=== PATIENT | female | born 1940 | race Caucasian/White ===

== ENCOUNTER 2017-12-19 14:43 | Inpatient (IN) | payer MEDICARE, OTHER ==
[2017-12-19 16:06] LABS: URINE BLOOD (Dip) POC 3+ (NEGATIVE); URINE GLUCOSE (Dip) POC Negative (NEGATIVE); URINE KETONES (Dip) POC Trace (NEGATIVE); URINE LEUKOCYTE EST (Dip) POC 3+ (NEGATIVE); URINE NITRITE (Dip) POC Positive (NEGATIVE); URINE TOTAL PROTEIN POC 3+ (NEGATIVE)
[2017-12-19 16:06] LABS: URINE PH (Dip) POC 8.5 (5.0-8.5)
[2017-12-19 17:47] LABS: ADD MAN DIFF? NO
[2017-12-19 17:50] LABS: WHITE BLOOD COUNT 11.5 10^3/ul (4.8-10.8)
[2017-12-19 17:50] LABS: BASOPHIL # 0.1 10^3/ul (0.0-0.1); BASOPHILS % 0.4 % (0.0-2.0); EOSINOPHILS # 0.3 10^3/ul (0.0-0.5); EOSINOPHILS % 2.7 % (0.0-7.0); HEMOGLOBIN 11.4 g/dl (12.0-16.0); LYMPHOCYTES # 1.3 10^3/ul (0.8-2.9); LYMPHOCYTES % 11.1 % (15.0-51.0); MEAN CORPUSCULAR HEMOGLOBIN 26.1 pg (29.0-33.0); MEAN CORPUSCULAR HGB CONC 31.7 g/dl (32.0-37.0); MEAN CORPUSCULAR VOLUME 82.4 fl (82.0-101.0); MEAN PLATELET VOLUME 8.2 fl (7.4-10.4); MONOCYTE # 1.1 10^3/ul (0.3-0.9); MONOCYTES % 9.1 % (0.0-11.0); NEUTROPHIL # 8.8 10^3/ul (1.6-7.5); NEUTROPHILS % 76.1 % (39.0-77.0); PLATELET COUNT 288 10^3/UL (140-415); RED BLOOD COUNT 4.37 10^6/ul (4.20-5.40)
[2017-12-19] MEDS: ONDANSETRON 4 MG INJ IV (18:02)
[2017-12-19] MEDS: morphine 2 MG INJ IV (18:02)
[2017-12-19 18:07] LABS: ANION GAP 12 (8-16); BLOOD UREA NITROGEN 21 mg/dl (7-20); CALCIUM 8.9 mg/dl (8.4-10.2); CARBON DIOXIDE 31 mmol/L (21-31); CHLORIDE 105 mmol/L (97-110); CREATININE 0.93 mg/dl (0.44-1.00); GLUCOSE 106 mg/dl (70-220); POTASSIUM 3.7 mmol/L (3.5-5.1); SODIUM 144 mmol/L (135-144)
[2017-12-19] MEDS ORDERED: ACETAMINOPHEN 325 MG TAB PO (19:00)
[2017-12-19] MEDS ORDERED: ZOLPIDEM 5 MG TAB PO (19:00)
[2017-12-19] MEDS ORDERED: ARTIFICIAL TEARS 15 ML OPH BOTH EYES (19:00)
[2017-12-19 19:25] LABS: ALANINE AMINOTRANSFERASE 24 IU/L (13-69); ALBUMIN 3.3 g/dl (3.3-4.9); ALKALINE PHOSPHATASE 93 IU/L (42-121); ASPARTATE AMINO TRANSFERASE 17 IU/L (15-46); BILIRUBIN,INDIRECT 0.2 mg/dl (0-1.1); BILIRUBIN,TOTAL 0.2 mg/dl (0.2-1.3); TOTAL PROTEIN 6.3 g/dl (6.1-8.1)
[2017-12-19] MEDS: HYDROCODONE/APAP (5/325) TAB PO (20:00)
[2017-12-19] MEDS: DICLOFENAC SODIUM 1% GEL 100 GM TUBE TP (23:00)
[2017-12-19] MEDS: NYSTATIN 15 GM POWDER BTL TOP (23:00)
[2017-12-19] MEDS: LACTOBACILLUS RHAMNOSUS CAP PO (23:00)
[2017-12-19] MEDS: APIXABAN 5 MG TABLET PO (23:09)
[2017-12-19] MEDS: POTASSIUM CHLORIDE (SR) 20 MEQ TAB PO (23:10)
[2017-12-19] MEDS: GABAPENTIN 100 MG CAP PO (23:11)
[2017-12-19] MEDS: ATORVASTATIN 40 MG TAB PO (23:11)
[2017-12-20] MEDS: MEROPENEM 500MG/50 ML (PMX) 50 ML IVPB ×3 (00:16→20:41)
[2017-12-20] MEDS: HYDROCODONE/APAP (5/325) TAB PO (02:42)
[2017-12-20 05:36] LABS: ADD MAN DIFF? NO
[2017-12-20 05:41] LABS: WHITE BLOOD COUNT 8.9 10^3/ul (4.8-10.8)
[2017-12-20 05:41] LABS: BASOPHILS % 0.4 % (0.0-2.0); EOSINOPHILS # 0.5 10^3/ul (0.0-0.5); HEMATOCRIT 32.4 % (37.0-47.0); LYMPHOCYTES # 1.5 10^3/ul (0.8-2.9); LYMPHOCYTES % 16.2 % (15.0-51.0); MEAN CORPUSCULAR HGB CONC 30.9 g/dl (32.0-37.0); MEAN CORPUSCULAR VOLUME 84.2 fl (82.0-101.0); MEAN PLATELET VOLUME 8.8 fl (7.4-10.4); MONOCYTE # 0.9 10^3/ul (0.3-0.9); NEUTROPHIL # 6.1 10^3/ul (1.6-7.5); PLATELET COUNT 278 10^3/UL (140-415); RED BLOOD COUNT 3.85 10^6/ul (4.20-5.40); RED CELL DISTRIBUTION WIDTH 15.2 % (11.5-14.5)
[2017-12-20] MEDS: LEVOTHYROXINE 50 MCG TAB PO (06:32)
[2017-12-20 07:01] LABS: ANION GAP 12 (8-16); BLOOD UREA NITROGEN 22 mg/dl (7-20); CALCIUM 8.8 mg/dl (8.4-10.2); CARBON DIOXIDE 30 mmol/L (21-31); CHLORIDE 107 mmol/L (97-110); CREATININE 1.09 mg/dl (0.44-1.00); GLUCOSE 97 mg/dl (70-220); PHOSPHORUS 4.8 mg/dl (2.5-4.9); POTASSIUM 3.8 mmol/L (3.5-5.1); SODIUM 145 mmol/L (135-144)
[2017-12-20] MEDS: [UNRECOGNIZED DRUG - REMARK] XX (08:00)
[2017-12-20] MEDS: DICLOFENAC SODIUM 1% GEL 100 GM TUBE TP ×3 (09:57→20:43)
[2017-12-20] MEDS: NYSTATIN 15 GM POWDER BTL TOP ×2 (09:57→20:43)
[2017-12-20] MEDS: MULTIVITAMINS/MINERALS TAB PO (09:58)
[2017-12-20] MEDS: ASCORBIC ACID 500 MG TAB PO (09:58)
[2017-12-20] MEDS: LACTOBACILLUS RHAMNOSUS CAP PO ×2 (09:58→20:40)
[2017-12-20] MEDS: GABAPENTIN 100 MG CAP PO ×3 (09:58→20:40)
[2017-12-20] MEDS: POTASSIUM CHLORIDE (SR) 20 MEQ TAB PO ×2 (09:58→20:40)
[2017-12-20] MEDS: FAMOTIDINE 20 MG TAB PO (09:59)
[2017-12-20] MEDS: PHENAZOPYRIDINE 200 MG TAB PO ×3 (09:59→20:40)
[2017-12-20] MEDS: FUROSEMIDE 20 MG TAB PO (10:00)
[2017-12-20] MEDS: AMLODIPINE 10 MG TAB PO (10:00)
[2017-12-20] MEDS: ANASTROZOLE 1 MG TAB PO (10:11)
[2017-12-20] MEDS: BISACODYL (EC) 5 MG TAB PO ×2 (15:39→20:14)
[2017-12-20] MEDS: PEG/ELECTROLYTES 4L BTL PO ×2 (15:41→20:14)
[2017-12-20] MEDS: ATORVASTATIN 40 MG TAB PO (20:40)
[2017-12-21] MEDS: LEVOTHYROXINE 50 MCG TAB PO (04:46)
[2017-12-21 05:57] LABS: ADD MAN DIFF? NO
[2017-12-21 05:59] LABS: BASOPHILS % 0.5 % (0.0-2.0); EOSINOPHILS # 0.3 10^3/ul (0.0-0.5); EOSINOPHILS % 4.5 % (0.0-7.0); HEMATOCRIT 33.9 % (37.0-47.0); HEMOGLOBIN 10.5 g/dl (12.0-16.0); LYMPHOCYTES % 13.6 % (15.0-51.0); MEAN CORPUSCULAR HEMOGLOBIN 25.8 pg (29.0-33.0); MEAN CORPUSCULAR VOLUME 83.3 fl (82.0-101.0); MEAN PLATELET VOLUME 8.6 fl (7.4-10.4); MONOCYTE # 0.7 10^3/ul (0.3-0.9); MONOCYTES % 9.6 % (0.0-11.0); NEUTROPHIL # 5.4 10^3/ul (1.6-7.5); NEUTROPHILS % 71.4 % (39.0-77.0); PLATELET COUNT 264 10^3/UL (140-415); RED BLOOD COUNT 4.07 10^6/ul (4.20-5.40)
[2017-12-21 05:59] LABS: WHITE BLOOD COUNT 7.6 10^3/ul (4.8-10.8)
[2017-12-21 07:41] LABS: ANION GAP 12 (8-16); BLOOD UREA NITROGEN 16 mg/dl (7-20); CALCIUM 8.3 mg/dl (8.4-10.2); CARBON DIOXIDE 30 mmol/L (21-31); CHLORIDE 107 mmol/L (97-110); GLUCOSE 80 mg/dl (70-220); MAGNESIUM 1.9 mg/dl (1.7-2.5); PHOSPHORUS 3.3 mg/dl (2.5-4.9); POTASSIUM 3.7 mmol/L (3.5-5.1); SODIUM 145 mmol/L (135-144)
[2017-12-21] MEDS: SALMETEROL/FLUTICASONE 250/50 INHA INH (08:14)
[2017-12-21] MEDS: POTASSIUM CHLORIDE (SR) 20 MEQ TAB PO ×2 (09:00→21:09)
[2017-12-21] MEDS: FAMOTIDINE 20 MG TAB PO (09:00)
[2017-12-21] MEDS: PHENAZOPYRIDINE 200 MG TAB PO ×3 (09:00→21:09)
[2017-12-21] MEDS: GABAPENTIN 100 MG CAP PO ×3 (09:00→21:09)
[2017-12-21] MEDS: ASCORBIC ACID 500 MG TAB PO (09:00)
[2017-12-21] MEDS: LACTOBACILLUS RHAMNOSUS CAP PO ×2 (09:00→21:09)
[2017-12-21] MEDS: MULTIVITAMINS/MINERALS TAB PO (09:00)
[2017-12-21] MEDS: AMLODIPINE 10 MG TAB PO (09:00)
[2017-12-21] MEDS ORDERED: ALBUTEROL/IPRATROPIUM (NEB) 3 ML AMP HHN (09:00)
[2017-12-21] MEDS: FUROSEMIDE 20 MG TAB PO (09:00)
[2017-12-21] MEDS: NYSTATIN 15 GM POWDER BTL TOP ×2 (09:00→21:10)
[2017-12-21] MEDS: ANASTROZOLE 1 MG TAB PO (09:00)
[2017-12-21] MEDS: MEROPENEM 500MG/50 ML (PMX) 50 ML IVPB ×2 (09:22→21:08)
[2017-12-21] MEDS: FENTAnyl 50 MCG/ML VIAL (12:28)
[2017-12-21] MEDS: PROPOFOL 20 ML ×3 (12:28→13:50)
[2017-12-21] MEDS: MIDAZOLAM 1 MG/ML 2 ML INJ (12:28)
[2017-12-21] MEDS: DILTIAZEM 30 MG TAB PO ×2 (13:00→21:17)
[2017-12-21] MEDS: DICLOFENAC SODIUM 1% GEL 100 GM TUBE TP ×3 (13:00→21:10)
[2017-12-21] MEDS: HYDROCODONE/APAP (5/325) TAB PO (15:10)
[2017-12-21] MEDS: FOSFOMYCIN 3 GM PACKET PO (16:31)
[2017-12-21] MEDS: ATORVASTATIN 40 MG TAB PO (21:09)
[2017-12-22] MEDS: LEVOTHYROXINE 50 MCG TAB PO (05:54)
[2017-12-22 06:09] LABS: ADD MAN DIFF? NO
[2017-12-22 06:13] LABS: BASOPHILS % 0.6 % (0.0-2.0); EOSINOPHILS # 0.3 10^3/ul (0.0-0.5); HEMOGLOBIN 10.6 g/dl (12.0-16.0); LYMPHOCYTES # 1.6 10^3/ul (0.8-2.9); LYMPHOCYTES % 21.9 % (15.0-51.0); MEAN CORPUSCULAR HEMOGLOBIN 25.7 pg (29.0-33.0); MEAN CORPUSCULAR HGB CONC 31.2 g/dl (32.0-37.0); MEAN CORPUSCULAR VOLUME 82.5 fl (82.0-101.0); MEAN PLATELET VOLUME 8.6 fl (7.4-10.4); MONOCYTE # 0.6 10^3/ul (0.3-0.9); MONOCYTES % 7.8 % (0.0-11.0); NEUTROPHIL # 4.7 10^3/ul (1.6-7.5); NEUTROPHILS % 65.3 % (39.0-77.0); PLATELET COUNT 294 10^3/UL (140-415); RED BLOOD COUNT 4.12 10^6/ul (4.20-5.40)
[2017-12-22 06:13] LABS: WHITE BLOOD COUNT 7.2 10^3/ul (4.8-10.8)
[2017-12-22 06:51] LABS: ANION GAP 12 (8-16); BLOOD UREA NITROGEN 13 mg/dl (7-20); CALCIUM 8.8 mg/dl (8.4-10.2); CARBON DIOXIDE 30 mmol/L (21-31); CHLORIDE 107 mmol/L (97-110); CREATININE 0.85 mg/dl (0.44-1.00); GLUCOSE 79 mg/dl (70-220); MAGNESIUM 1.8 mg/dl (1.7-2.5); PHOSPHORUS 3.4 mg/dl (2.5-4.9); POTASSIUM 4.3 mmol/L (3.5-5.1); SODIUM 145 mmol/L (135-144)
[2017-12-22] MEDS: SALMETEROL/FLUTICASONE 250/50 INHA INH ×2 (07:38→08:43)
[2017-12-22] MEDS: LORAZEPAM 0.5 MG TAB PO (07:54)
[2017-12-22] MEDS: POTASSIUM CHLORIDE (SR) 20 MEQ TAB PO ×2 (08:44→20:31)
[2017-12-22] MEDS: NYSTATIN 15 GM POWDER BTL TOP ×2 (08:44→20:33)
[2017-12-22] MEDS: PHENAZOPYRIDINE 200 MG TAB PO ×3 (08:44→20:31)
[2017-12-22] MEDS: MEROPENEM 500MG/50 ML (PMX) 50 ML IVPB (08:44)
[2017-12-22] MEDS: ASCORBIC ACID 500 MG TAB PO (08:45)
[2017-12-22] MEDS: MULTIVITAMINS/MINERALS TAB PO (08:45)
[2017-12-22] MEDS: DICLOFENAC SODIUM 1% GEL 100 GM TUBE TP ×3 (08:45→20:32)
[2017-12-22] MEDS: LACTOBACILLUS RHAMNOSUS CAP PO ×2 (08:45→20:31)
[2017-12-22] MEDS: FAMOTIDINE 20 MG TAB PO (08:45)
[2017-12-22] MEDS: FUROSEMIDE 20 MG TAB PO (08:47)
[2017-12-22] MEDS: DILTIAZEM 30 MG TAB PO ×3 (08:48→20:31)
[2017-12-22] MEDS: AMLODIPINE 10 MG TAB PO (08:48)
[2017-12-22] MEDS: GABAPENTIN 100 MG CAP PO ×3 (09:06→20:31)
[2017-12-22] MEDS: ANASTROZOLE 1 MG TAB PO (10:01)
[2017-12-22] MEDS ORDERED: AMIKACIN IV PER PHARMACY XX (15:30)
[2017-12-22] MEDS: AMIKACIN 600 MG in SOD CHLORIDE 0.9% 100 ML IVPB (18:40)
[2017-12-22] MEDS: ALBUTEROL/IPRATROPIUM (NEB) 3 ML AMP HHN (19:12)
[2017-12-22] MEDS: ATORVASTATIN 40 MG TAB PO (20:31)
[2017-12-22] MEDS: ZYVOX 600 MG TAB PO (22:02)
[2017-12-22] MEDS: APIXABAN 5 MG TABLET PO (22:07)
[2017-12-23] MEDS: ALBUTEROL/IPRATROPIUM (NEB) 3 ML AMP HHN ×4 (01:06→20:23)
[2017-12-23] MEDS: LEVOTHYROXINE 50 MCG TAB PO (06:02)
[2017-12-23] MEDS: SALMETEROL/FLUTICASONE 250/50 INHA INH (08:47)
[2017-12-23] MEDS: NYSTATIN 15 GM POWDER BTL TOP ×2 (08:47→21:39)
[2017-12-23] MEDS: DICLOFENAC SODIUM 1% GEL 100 GM TUBE TP ×3 (08:47→21:39)
[2017-12-23] MEDS: MULTIVITAMINS/MINERALS TAB PO (08:48)
[2017-12-23] MEDS: POTASSIUM CHLORIDE (SR) 20 MEQ TAB PO ×2 (08:48→21:34)
[2017-12-23] MEDS: FAMOTIDINE 20 MG TAB PO (08:48)
[2017-12-23] MEDS: ASCORBIC ACID 500 MG TAB PO (08:48)
[2017-12-23] MEDS: ZYVOX 600 MG TAB PO ×2 (08:48→21:34)
[2017-12-23] MEDS: GABAPENTIN 100 MG CAP PO ×3 (08:48→21:33)
[2017-12-23] MEDS: LACTOBACILLUS RHAMNOSUS CAP PO ×2 (08:48→21:38)
[2017-12-23] MEDS: PHENAZOPYRIDINE 200 MG TAB PO ×3 (08:48→21:32)
[2017-12-23] MEDS: ANASTROZOLE 1 MG TAB PO (08:50)
[2017-12-23] MEDS: AMLODIPINE 10 MG TAB PO (08:51)
[2017-12-23] MEDS: APIXABAN 5 MG TABLET PO ×2 (08:51→21:32)
[2017-12-23] MEDS: FUROSEMIDE 20 MG TAB PO (08:58)
[2017-12-23] MEDS: HYDROCODONE/APAP (5/325) TAB PO (08:58)
[2017-12-23] MEDS: DILTIAZEM 30 MG TAB PO ×3 (08:59→21:32)
[2017-12-23] MEDS: AMIKACIN 600 MG in SOD CHLORIDE 0.9% 100 ML IVPB (17:03)
[2017-12-23] MEDS: ATORVASTATIN 40 MG TAB PO (21:33)
[2017-12-24] MEDS: ALBUTEROL/IPRATROPIUM (NEB) 3 ML AMP HHN ×4 (01:25→19:56)
[2017-12-24] MEDS: LEVOTHYROXINE 50 MCG TAB PO (05:06)
[2017-12-24 06:11] LABS: ADD MAN DIFF? NO
[2017-12-24 06:19] LABS: WHITE BLOOD COUNT 7.7 10^3/ul (4.8-10.8)
[2017-12-24 06:19] LABS: BASOPHILS % 0.4 % (0.0-2.0); EOSINOPHILS # 0.4 10^3/ul (0.0-0.5); EOSINOPHILS % 5.2 % (0.0-7.0); HEMOGLOBIN 10.8 g/dl (12.0-16.0); LYMPHOCYTES # 1.9 10^3/ul (0.8-2.9); LYMPHOCYTES % 24.3 % (15.0-51.0); MEAN CORPUSCULAR HEMOGLOBIN 25.7 pg (29.0-33.0); MEAN CORPUSCULAR HGB CONC 30.9 g/dl (32.0-37.0); MEAN CORPUSCULAR VOLUME 83.1 fl (82.0-101.0); MEAN PLATELET VOLUME 8.4 fl (7.4-10.4); MONOCYTE # 0.7 10^3/ul (0.3-0.9); MONOCYTES % 8.5 % (0.0-11.0); NEUTROPHIL # 4.7 10^3/ul (1.6-7.5); NEUTROPHILS % 61.1 % (39.0-77.0); PLATELET COUNT 322 10^3/UL (140-415); RED BLOOD COUNT 4.21 10^6/ul (4.20-5.40)
[2017-12-24] MEDS: ARTIFICIAL TEARS 15 ML OPH BOTH EYES (06:49)
[2017-12-24 06:52] LABS: ANION GAP 14 (8-16); BLOOD UREA NITROGEN 13 mg/dl (7-20); CALCIUM 8.9 mg/dl (8.4-10.2); CARBON DIOXIDE 28 mmol/L (21-31); CHLORIDE 106 mmol/L (97-110); GLUCOSE 94 mg/dl (70-220); MAGNESIUM 1.9 mg/dl (1.7-2.5); PHOSPHORUS 4.4 mg/dl (2.5-4.9); POTASSIUM 4.6 mmol/L (3.5-5.1); SODIUM 143 mmol/L (135-144)
[2017-12-24] MEDS: PHENAZOPYRIDINE 200 MG TAB PO ×3 (09:22→20:31)
[2017-12-24] MEDS: NYSTATIN 15 GM POWDER BTL TOP ×2 (09:22→20:38)
[2017-12-24] MEDS: SALMETEROL/FLUTICASONE 250/50 INHA INH (09:22)
[2017-12-24] MEDS: DICLOFENAC SODIUM 1% GEL 100 GM TUBE TP ×3 (09:22→20:39)
[2017-12-24] MEDS: ASCORBIC ACID 500 MG TAB PO (09:23)
[2017-12-24] MEDS: MULTIVITAMINS/MINERALS TAB PO (09:23)
[2017-12-24] MEDS: GABAPENTIN 100 MG CAP PO ×3 (09:23→20:32)
[2017-12-24] MEDS: LACTOBACILLUS RHAMNOSUS CAP PO ×2 (09:23→20:31)
[2017-12-24] MEDS: ZYVOX 600 MG TAB PO ×2 (09:23→20:31)
[2017-12-24] MEDS: FAMOTIDINE 20 MG TAB PO (09:23)
[2017-12-24] MEDS: POTASSIUM CHLORIDE (SR) 20 MEQ TAB PO ×2 (09:23→20:32)
[2017-12-24] MEDS: APIXABAN 5 MG TABLET PO ×2 (09:24→20:33)
[2017-12-24] MEDS: FUROSEMIDE 20 MG TAB PO (09:25)
[2017-12-24] MEDS: DILTIAZEM 30 MG TAB PO ×3 (09:26→20:31)
[2017-12-24] MEDS: AMLODIPINE 5 MG TAB PO (09:26)
[2017-12-24] MEDS: ANASTROZOLE 1 MG TAB PO (09:39)
[2017-12-24] MEDS: LORAZEPAM 0.5 MG TAB PO (13:05)
[2017-12-24] MEDS: DOCUSATE SODIUM 100 MG CAP PO (13:05)
[2017-12-24] MEDS: AMIKACIN 600 MG in SOD CHLORIDE 0.9% 100 ML IVPB (17:47)
[2017-12-24] MEDS: LUBIPROSTONE 24 MCG CAP PO (20:30)
[2017-12-24] MEDS: ATORVASTATIN 40 MG TAB PO (20:32)
[2017-12-25] MEDS: ALBUTEROL/IPRATROPIUM (NEB) 3 ML AMP HHN ×4 (02:00→19:57)
[2017-12-25] MEDS: LEVOTHYROXINE 50 MCG TAB PO (05:16)
[2017-12-25] MEDS: ARTIFICIAL TEARS 15 ML OPH BOTH EYES (05:16)
[2017-12-25] MEDS: FAMOTIDINE 20 MG TAB PO (08:58)
[2017-12-25] MEDS: ZYVOX 600 MG TAB PO (08:58)
[2017-12-25] MEDS: POTASSIUM CHLORIDE (SR) 20 MEQ TAB PO ×2 (08:58→21:58)
[2017-12-25] MEDS: PHENAZOPYRIDINE 200 MG TAB PO ×3 (08:58→21:52)
[2017-12-25] MEDS: LACTOBACILLUS RHAMNOSUS CAP PO ×2 (08:58→21:52)
[2017-12-25] MEDS: GABAPENTIN 100 MG CAP PO ×3 (08:58→21:53)
[2017-12-25] MEDS: MULTIVITAMINS/MINERALS TAB PO (08:58)
[2017-12-25] MEDS: ASCORBIC ACID 500 MG TAB PO (08:58)
[2017-12-25] MEDS: LUBIPROSTONE 24 MCG CAP PO ×2 (08:58→21:53)
[2017-12-25] MEDS: AMLODIPINE 5 MG TAB PO (08:59)
[2017-12-25] MEDS: FUROSEMIDE 20 MG TAB PO (08:59)
[2017-12-25] MEDS: SALMETEROL/FLUTICASONE 250/50 INHA INH (09:02)
[2017-12-25] MEDS: ANASTROZOLE 1 MG TAB PO (09:02)
[2017-12-25] MEDS: DICLOFENAC SODIUM 1% GEL 100 GM TUBE TP ×3 (09:03→21:53)
[2017-12-25] MEDS: NYSTATIN 15 GM POWDER BTL TOP ×2 (09:04→21:53)
[2017-12-25] MEDS: APIXABAN 5 MG TABLET PO ×2 (09:07→21:52)
[2017-12-25] MEDS: DILTIAZEM (CD) 180 MG CAP PO (12:47)
[2017-12-25] MEDS: HYDROCODONE/APAP (5/325) TAB PO (13:31)
[2017-12-25] MEDS: ATORVASTATIN 40 MG TAB PO (21:52)
[2017-12-26] MEDS: ALBUTEROL/IPRATROPIUM (NEB) 3 ML AMP HHN ×4 (01:23→19:24)
[2017-12-26 06:01] LABS: ADD MAN DIFF? NO
[2017-12-26] MEDS: LEVOTHYROXINE 50 MCG TAB PO (06:04)
[2017-12-26] MEDS: SALMETEROL/FLUTICASONE 250/50 INHA INH ×2 (06:05→18:02)
[2017-12-26 06:07] LABS: WHITE BLOOD COUNT 10.5 10^3/ul (4.8-10.8)
[2017-12-26 06:07] LABS: BASOPHILS % 0.4 % (0.0-2.0); EOSINOPHILS # 0.5 10^3/ul (0.0-0.5); EOSINOPHILS % 4.6 % (0.0-7.0); HEMATOCRIT 33.9 % (37.0-47.0); HEMOGLOBIN 10.6 g/dl (12.0-16.0); LYMPHOCYTES # 1.6 10^3/ul (0.8-2.9); LYMPHOCYTES % 14.8 % (15.0-51.0); MEAN CORPUSCULAR HEMOGLOBIN 25.9 pg (29.0-33.0); MEAN CORPUSCULAR HGB CONC 31.3 g/dl (32.0-37.0); MEAN CORPUSCULAR VOLUME 82.7 fl (82.0-101.0); MEAN PLATELET VOLUME 8.9 fl (7.4-10.4); MONOCYTE # 0.8 10^3/ul (0.3-0.9); MONOCYTES % 7.3 % (0.0-11.0); NEUTROPHIL # 7.6 10^3/ul (1.6-7.5); NEUTROPHILS % 72.3 % (39.0-77.0); PLATELET COUNT 317 10^3/UL (140-415); RED CELL DISTRIBUTION WIDTH 15.5 % (11.5-14.5)
[2017-12-26 06:43] LABS: ANION GAP 14 (8-16); BLOOD UREA NITROGEN 16 mg/dl (7-20); CALCIUM 8.5 mg/dl (8.4-10.2); CARBON DIOXIDE 25 mmol/L (21-31); CHLORIDE 107 mmol/L (97-110); CREATININE 1.13 mg/dl (0.44-1.00); GLUCOSE 93 mg/dl (70-220); PHOSPHORUS 4.1 mg/dl (2.5-4.9); POTASSIUM 4.3 mmol/L (3.5-5.1); SODIUM 142 mmol/L (135-144)
[2017-12-26] MEDS: HYDROCODONE/APAP (5/325) TAB PO ×2 (08:16→18:03)
[2017-12-26] MEDS: PHENAZOPYRIDINE 200 MG TAB PO ×3 (09:07→22:35)
[2017-12-26] MEDS: GABAPENTIN 100 MG CAP PO ×3 (09:07→22:35)
[2017-12-26] MEDS: APIXABAN 5 MG TABLET PO (09:08)
[2017-12-26] MEDS: FUROSEMIDE 20 MG TAB PO (09:08)
[2017-12-26] MEDS: POTASSIUM CHLORIDE (SR) 20 MEQ TAB PO ×2 (09:09→22:35)
[2017-12-26] MEDS: MULTIVITAMINS/MINERALS TAB PO (09:09)
[2017-12-26] MEDS: AMLODIPINE 5 MG TAB PO (09:09)
[2017-12-26] MEDS: LACTOBACILLUS RHAMNOSUS CAP PO ×2 (09:09→22:36)
[2017-12-26] MEDS: FAMOTIDINE 20 MG TAB PO (09:10)
[2017-12-26] MEDS: LUBIPROSTONE 24 MCG CAP PO ×2 (09:10→22:36)
[2017-12-26] MEDS: DILTIAZEM (CD) 180 MG CAP PO (09:10)
[2017-12-26] MEDS: DICLOFENAC SODIUM 1% GEL 100 GM TUBE TP ×3 (09:13→22:33)
[2017-12-26] MEDS: NYSTATIN 15 GM POWDER BTL TOP ×2 (09:13→22:33)
[2017-12-26] MEDS: ANASTROZOLE 1 MG TAB PO (09:13)
[2017-12-26] MEDS: ASCORBIC ACID 500 MG TAB PO (09:28)
[2017-12-26] MEDS: AL HYDROX/MG HYDROX/SIMETH 30 ML CUP PO ×3 (14:17→22:35)
[2017-12-26] MEDS: ATORVASTATIN 40 MG TAB PO (22:35)
[2017-12-27] MEDS: ALBUTEROL/IPRATROPIUM (NEB) 3 ML AMP HHN ×4 (01:18→19:53)
[2017-12-27 05:17] LABS: ADD MAN DIFF? NO
[2017-12-27 05:23] LABS: BASOPHILS % 0.3 % (0.0-2.0); EOSINOPHILS # 0.4 10^3/ul (0.0-0.5); EOSINOPHILS % 4.2 % (0.0-7.0); HEMATOCRIT 35.5 % (37.0-47.0); HEMOGLOBIN 10.8 g/dl (12.0-16.0); LYMPHOCYTES # 1.5 10^3/ul (0.8-2.9); MEAN CORPUSCULAR HEMOGLOBIN 25.6 pg (29.0-33.0); MEAN CORPUSCULAR HGB CONC 30.4 g/dl (32.0-37.0); MEAN CORPUSCULAR VOLUME 84.1 fl (82.0-101.0); MEAN PLATELET VOLUME 8.3 fl (7.4-10.4); MONOCYTE # 0.7 10^3/ul (0.3-0.9); MONOCYTES % 7.3 % (0.0-11.0); NEUTROPHIL # 7.3 10^3/ul (1.6-7.5); NEUTROPHILS % 72.8 % (39.0-77.0); PLATELET COUNT 296 10^3/UL (140-415); RED BLOOD COUNT 4.22 10^6/ul (4.20-5.40); RED CELL DISTRIBUTION WIDTH 15.5 % (11.5-14.5)
[2017-12-27 05:54] LABS: ANION GAP 15 (8-16); BLOOD UREA NITROGEN 13 mg/dl (7-20); CALCIUM 8.8 mg/dl (8.4-10.2); CARBON DIOXIDE 25 mmol/L (21-31); CHLORIDE 108 mmol/L (97-110); CREATININE 0.95 mg/dl (0.44-1.00); GLUCOSE 94 mg/dl (70-220); MAGNESIUM 2.1 mg/dl (1.7-2.5); PHOSPHORUS 3.8 mg/dl (2.5-4.9); POTASSIUM 5.2 mmol/L (3.5-5.1); SODIUM 143 mmol/L (135-144)
[2017-12-27] MEDS: LEVOTHYROXINE 50 MCG TAB PO (06:08)
[2017-12-27] MEDS: SALMETEROL/FLUTICASONE 250/50 INHA INH ×2 (06:08→16:00)
[2017-12-27] MEDS: PANTOPRAZOLE (EC) 40 MG TAB PO (06:09)
[2017-12-27] MEDS: PHENAZOPYRIDINE 200 MG TAB PO ×3 (08:43→20:50)
[2017-12-27] MEDS: GABAPENTIN 100 MG CAP PO ×3 (08:43→20:50)
[2017-12-27] MEDS: LUBIPROSTONE 24 MCG CAP PO ×2 (08:43→20:50)
[2017-12-27] MEDS: MULTIVITAMINS/MINERALS TAB PO (08:44)
[2017-12-27] MEDS: LACTOBACILLUS RHAMNOSUS CAP PO ×2 (08:44→20:50)
[2017-12-27] MEDS: ASCORBIC ACID 500 MG TAB PO (08:44)
[2017-12-27] MEDS: AMLODIPINE 5 MG TAB PO (08:44)
[2017-12-27] MEDS: DILTIAZEM (CD) 180 MG CAP PO (08:44)
[2017-12-27] MEDS: FUROSEMIDE 20 MG TAB PO (08:45)
[2017-12-27] MEDS: NYSTATIN 15 GM POWDER BTL TOP ×2 (08:45→20:51)
[2017-12-27] MEDS: DICLOFENAC SODIUM 1% GEL 100 GM TUBE TP ×3 (08:45→20:51)
[2017-12-27] MEDS: AL HYDROX/MG HYDROX/SIMETH 30 ML CUP PO ×2 (08:46→15:56)
[2017-12-27] MEDS: ANASTROZOLE 1 MG TAB PO (08:52)
[2017-12-27 12:07] LABS: INR 1.19; PROTIME 15.3 Sec (11.9-14.9); PT RATIO 1.2
[2017-12-27] MEDS: ATORVASTATIN 40 MG TAB PO (20:50)
[2017-12-28] MEDS: ALBUTEROL/IPRATROPIUM (NEB) 3 ML AMP HHN ×4 (01:34→20:00)
[2017-12-28] MEDS: LEVOTHYROXINE 50 MCG TAB PO ×3 (05:02→11:00)
[2017-12-28] MEDS: PANTOPRAZOLE (EC) 40 MG TAB PO (05:02)
[2017-12-28] MEDS: SALMETEROL/FLUTICASONE 250/50 INHA INH ×2 (05:11→18:55)
[2017-12-28 06:18] LABS: ADD MAN DIFF? NO
[2017-12-28 06:22] LABS: WHITE BLOOD COUNT 8.6 10^3/ul (4.8-10.8)
[2017-12-28 06:22] LABS: BASOPHILS % 0.5 % (0.0-2.0); EOSINOPHILS # 0.4 10^3/ul (0.0-0.5); EOSINOPHILS % 4.2 % (0.0-7.0); HEMATOCRIT 33.4 % (37.0-47.0); HEMOGLOBIN 10.3 g/dl (12.0-16.0); LYMPHOCYTES # 1.6 10^3/ul (0.8-2.9); LYMPHOCYTES % 18.3 % (15.0-51.0); MEAN CORPUSCULAR HEMOGLOBIN 25.6 pg (29.0-33.0); MEAN CORPUSCULAR HGB CONC 30.8 g/dl (32.0-37.0); MEAN CORPUSCULAR VOLUME 82.9 fl (82.0-101.0); MEAN PLATELET VOLUME 8.5 fl (7.4-10.4); MONOCYTE # 0.8 10^3/ul (0.3-0.9); MONOCYTES % 8.7 % (0.0-11.0); NEUTROPHIL # 5.9 10^3/ul (1.6-7.5); PLATELET COUNT 284 10^3/UL (140-415); RED BLOOD COUNT 4.03 10^6/ul (4.20-5.40); RED CELL DISTRIBUTION WIDTH 15.4 % (11.5-14.5)
[2017-12-28] MEDS ORDERED: SUCCINYLCHOLINE CHLORIDE 100 MG/5 ML SYG IV (07:00)
[2017-12-28 07:05] LABS: ANION GAP 13 (8-16); BLOOD UREA NITROGEN 13 mg/dl (7-20); CALCIUM 8.7 mg/dl (8.4-10.2); CARBON DIOXIDE 28 mmol/L (21-31); CHLORIDE 106 mmol/L (97-110); CREATININE 0.96 mg/dl (0.44-1.00); GLUCOSE 91 mg/dl (70-220); MAGNESIUM 2.1 mg/dl (1.7-2.5); PHOSPHORUS 3.9 mg/dl (2.5-4.9); SODIUM 143 mmol/L (135-144)
[2017-12-28] MEDS: DILTIAZEM (CD) 180 MG CAP PO ×3 (09:00→10:59)
[2017-12-28] MEDS: MULTIVITAMINS/MINERALS TAB PO (09:00)
[2017-12-28] MEDS: FUROSEMIDE 20 MG TAB PO (09:00)
[2017-12-28] MEDS: AMLODIPINE 5 MG TAB PO (09:00)
[2017-12-28] MEDS: ANASTROZOLE 1 MG TAB PO (09:00)
[2017-12-28] MEDS: PHENAZOPYRIDINE 200 MG TAB PO ×3 (09:00→20:31)
[2017-12-28] MEDS: ASCORBIC ACID 500 MG TAB PO (09:00)
[2017-12-28] MEDS: GABAPENTIN 100 MG CAP PO ×3 (09:00→20:31)
[2017-12-28] MEDS: LUBIPROSTONE 24 MCG CAP PO ×2 (09:00→20:31)
[2017-12-28] MEDS: LACTOBACILLUS RHAMNOSUS CAP PO ×2 (09:00→20:31)
[2017-12-28] MEDS: NYSTATIN 15 GM POWDER BTL TOP ×2 (10:17→20:32)
[2017-12-28] MEDS: DICLOFENAC SODIUM 1% GEL 100 GM TUBE TP ×3 (10:17→20:32)
[2017-12-28] MEDS ORDERED: ISOSULFAN BLUE 1% 5 ML INJ SC (11:59)
[2017-12-28] MEDS ORDERED: PROPOFOL 20 ML ×2 (14:01→15:46)
[2017-12-28] MEDS ORDERED: MIDAZOLAM 1 MG/ML 2 ML INJ (14:01)
[2017-12-28] MEDS ORDERED: FENTAnyl 50 MCG/ML VIAL (14:01)
[2017-12-28] MEDS ORDERED: PHENYLephrine (100 MCG/ML) 5ML SYG (14:17)
[2017-12-28] MEDS ORDERED: BUPIVACAINE 0.5% (SDV) 30 ML INJ (14:34)
[2017-12-28] MEDS ORDERED: LIDOCAINE 1%/EPI 30 ML INJ (14:34)
[2017-12-28] MEDS ORDERED: DEXAMETHASONE 4 MG/ML 1 ML INJ (14:36)
[2017-12-28] MEDS: LIDOCAINE 1%/EPI 30 ML INJ INJ (14:36)
[2017-12-28] MEDS ORDERED: ONDANSETRON 4 MG INJ ×2 (14:36→15:47)
[2017-12-28] MEDS: BUPIVACAINE 0.5% 30 ML VIAL INJ (14:36)
[2017-12-28] MEDS: ISOSULFAN BLUE 1% 5 ML INJ SC (14:40)
[2017-12-28] MEDS ORDERED: CLINDAMYCIN 900 MG/D5W (PMX) 50 ML IVPB (14:40)
[2017-12-28] MEDS ORDERED: ACETAMINOPHEN 1000MG/100ML IV 100 ML (14:41)
[2017-12-28] MEDS ORDERED: EPHEDrine SULFATE 50 MG/5 ML SYG (14:41)
[2017-12-28] MEDS ORDERED: FENTAnyl 50 MCG/ML VIAL IV ×2 (15:00)
[2017-12-28] MEDS ORDERED: ONDANSETRON 4 MG INJ IV ×2 (15:00→17:00)
[2017-12-28] MEDS ORDERED: HYDROmorphONE (0.2 MG/ML) 10ML SYG IV ×2 (15:00)
[2017-12-28] MEDS ORDERED: LABETALOL HCL 20MG INJ IV (15:00)
[2017-12-28] MEDS ORDERED: hydrALAzine 20 MG INJ IV (15:00)
[2017-12-28] MEDS ORDERED: MEPERIDINE 25 MG INJ IV (15:00)
[2017-12-28] MEDS ORDERED: METOCLOPRAMIDE 10 MG INJ IV (15:00)
[2017-12-28] MEDS: HYDROCODONE/APAP (5/325) TAB PO (18:44)
[2017-12-28] MEDS: ATORVASTATIN 40 MG TAB PO (20:31)
[2017-12-28] MEDS: HYDROmorphONE 0.5 MG/0.5 ML SYG IV (21:19)
[2017-12-28] MEDS ORDERED: morphine 2 MG INJ IV (22:30)
[2017-12-28] MEDS: DIPHENHYDRAMINE 50 MG INJ IV (22:31)
[2017-12-29] MEDS: ALBUTEROL/IPRATROPIUM (NEB) 3 ML AMP HHN ×4 (01:23→20:00)
[2017-12-29] MEDS: SALMETEROL/FLUTICASONE 250/50 INHA INH ×2 (05:54→18:23)
[2017-12-29] MEDS: LEVOTHYROXINE 50 MCG TAB PO (06:03)
[2017-12-29] MEDS: PANTOPRAZOLE (EC) 40 MG TAB PO (06:03)
[2017-12-29] MEDS: LACTOBACILLUS RHAMNOSUS CAP PO ×2 (09:16→20:36)
[2017-12-29] MEDS: HYDROCODONE/APAP (5/325) TAB PO ×2 (09:16→14:12)
[2017-12-29] MEDS: LUBIPROSTONE 24 MCG CAP PO ×2 (09:17→20:36)
[2017-12-29] MEDS: FUROSEMIDE 20 MG TAB PO (09:17)
[2017-12-29] MEDS: ASCORBIC ACID 500 MG TAB PO (09:17)
[2017-12-29] MEDS: AMLODIPINE 5 MG TAB PO (09:17)
[2017-12-29] MEDS: MULTIVITAMINS/MINERALS TAB PO (09:17)
[2017-12-29] MEDS: DICLOFENAC SODIUM 1% GEL 100 GM TUBE TP ×3 (09:18→20:37)
[2017-12-29] MEDS: DILTIAZEM (CD) 180 MG CAP PO (09:18)
[2017-12-29] MEDS: PHENAZOPYRIDINE 200 MG TAB PO ×3 (09:18→21:37)
[2017-12-29] MEDS: NYSTATIN 15 GM POWDER BTL TOP ×2 (09:18→20:36)
[2017-12-29] MEDS: GABAPENTIN 100 MG CAP PO ×3 (09:18→20:36)
[2017-12-29] MEDS: ANASTROZOLE 1 MG TAB PO (09:20)
[2017-12-29] MEDS: ATORVASTATIN 40 MG TAB PO (20:36)
[2017-12-30] MEDS: ALBUTEROL/IPRATROPIUM (NEB) 3 ML AMP HHN ×3 (01:01→14:10)
[2017-12-30] MEDS: LEVOTHYROXINE 50 MCG TAB PO (05:05)
[2017-12-30] MEDS: PANTOPRAZOLE (EC) 40 MG TAB PO (05:05)
[2017-12-30] MEDS: SALMETEROL/FLUTICASONE 250/50 INHA INH ×2 (05:05→17:00)
[2017-12-30 05:28] LABS: ADD MAN DIFF? NO
[2017-12-30 05:40] LABS: WHITE BLOOD COUNT 10.6 10^3/ul (4.8-10.8)
[2017-12-30 05:40] LABS: BASOPHILS % 0.4 % (0.0-2.0); EOSINOPHILS # 0.1 10^3/ul (0.0-0.5); EOSINOPHILS % 1.2 % (0.0-7.0); HEMATOCRIT 31.9 % (37.0-47.0); HEMOGLOBIN 9.9 g/dl (12.0-16.0); LYMPHOCYTES # 1.5 10^3/ul (0.8-2.9); LYMPHOCYTES % 14.4 % (15.0-51.0); MEAN CORPUSCULAR HEMOGLOBIN 26.1 pg (29.0-33.0); MEAN CORPUSCULAR VOLUME 84.2 fl (82.0-101.0); MEAN PLATELET VOLUME 8.6 fl (7.4-10.4); MONOCYTE # 1.4 10^3/ul (0.3-0.9); MONOCYTES % 13.3 % (0.0-11.0); NEUTROPHIL # 7.4 10^3/ul (1.6-7.5); NEUTROPHILS % 69.9 % (39.0-77.0); PLATELET COUNT 270 10^3/UL (140-415); RED BLOOD COUNT 3.79 10^6/ul (4.20-5.40); RED CELL DISTRIBUTION WIDTH 15.8 % (11.5-14.5)
[2017-12-30 06:55] LABS: ANION GAP 14 (8-16); BLOOD UREA NITROGEN 21 mg/dl (7-20); CALCIUM 8.3 mg/dl (8.4-10.2); CARBON DIOXIDE 26 mmol/L (21-31); CHLORIDE 104 mmol/L (97-110); CREATININE 1.06 mg/dl (0.44-1.00); GLUCOSE 97 mg/dl (70-220); PHOSPHORUS 3.8 mg/dl (2.5-4.9); POTASSIUM 3.7 mmol/L (3.5-5.1); SODIUM 140 mmol/L (135-144)
[2017-12-30] MEDS: AMLODIPINE 5 MG TAB PO (08:48)
[2017-12-30] MEDS: PHENAZOPYRIDINE 200 MG TAB PO ×2 (08:48→12:32)
[2017-12-30] MEDS: LACTOBACILLUS RHAMNOSUS CAP PO (08:48)
[2017-12-30] MEDS: DILTIAZEM (CD) 180 MG CAP PO (08:49)
[2017-12-30] MEDS: MULTIVITAMINS/MINERALS TAB PO (08:49)
[2017-12-30] MEDS: FUROSEMIDE 20 MG TAB PO (08:49)
[2017-12-30] MEDS: LUBIPROSTONE 24 MCG CAP PO (08:49)
[2017-12-30] MEDS: ASCORBIC ACID 500 MG TAB PO (08:49)
[2017-12-30] MEDS: NYSTATIN 15 GM POWDER BTL TOP (08:50)
[2017-12-30] MEDS: DICLOFENAC SODIUM 1% GEL 100 GM TUBE TP ×2 (08:50→13:29)
[2017-12-30] MEDS: GABAPENTIN 100 MG CAP PO ×2 (08:50→12:32)
[2017-12-30] MEDS: ANASTROZOLE 1 MG TAB PO (08:53)
== END 2017-12-30 18:20 | disposition home health service (06) | DRG 987 ==
LOC: MS2 12-20 14:00 → E/R 14:43 → MS2 17:17
PROVIDERS: Internal Medicine
PROC: 0HBT0ZZ Excision of Right Breast, Open Approach (ICD-10-PCS; principal; 2017-12-21 11:28)
PROC: 07B50ZX Excision of Right Axillary Lymphatic, Open Approach, Diagnostic (ICD-10-PCS; 2017-12-21 11:28)
PROC: 0DBH8ZX Excision of Cecum, Via Natural or Artificial Opening Endoscopic, Diagnostic (ICD-10-PCS; 2017-12-21 11:28)
PROC: 0DBN8ZX Excision of Sigmoid Colon, Via Natural or Artificial Opening Endoscopic, Diagnostic (ICD-10-PCS; 2017-12-21 11:28)
DX: N39.0 Urinary tract infection, site not specified (principal); G93.40 Encephalopathy, unspecified; J45.901 Unspecified asthma with (acute) exacerbation; C77.3 Secondary and unspecified malignant neoplasm of axilla and upper limb lymph nodes; G62.9 Polyneuropathy, unspecified; N13.30 Unspecified hydronephrosis; R13.10 Dysphagia, unspecified; C50.911 Malignant neoplasm of unspecified site of right female breast; E66.01 Morbid (severe) obesity due to excess calories; E03.9 Hypothyroidism, unspecified; I12.9 Hypertensive chronic kidney disease with stage 1 through stage 4 chronic kidney disease, or unspecified chronic kidney disease; D64.9 Anemia, unspecified; I25.10 Atherosclerotic heart disease of native coronary artery without angina pectoris; Z86.718 Personal history of other venous thrombosis and embolism; Z68.37 Body mass index [BMI] 37.0-37.9, adult; N18.9 Chronic kidney disease, unspecified; R59.0 Localized enlarged lymph nodes; K59.00 Constipation, unspecified; E78.00 Pure hypercholesterolemia, unspecified; Z90.710 Acquired absence of both cervix and uterus; I69.998 Other sequelae following unspecified cerebrovascular disease; R33.9 Retention of urine, unspecified; K63.5 Polyp of colon; D12.0 Benign neoplasm of cecum; K57.30 Diverticulosis of large intestine without perforation or abscess without bleeding; I48.0 Paroxysmal atrial fibrillation; L30.9 Dermatitis, unspecified; R19.7 Diarrhea, unspecified; Z74.01 Bed confinement status; B96.5 Pseudomonas (aeruginosa) (mallei) (pseudomallei) as the cause of diseases classified elsewhere; B95.2 Enterococcus as the cause of diseases classified elsewhere
CPT/HCPCS: 36415; 71045; 74018; 74176; 80048; 80076; 80150; 81003; 83735; 84100; 85025; 85610; 87086; 88305; 88307; 88331; 93005; 93306; 94640; 94664; 96374; 96375; 97110; 97163; 97530; 99285-25